=== PATIENT | male | born 1995 | race African-American/Black ===

== ENCOUNTER 2020-08-07 23:28 | Inpatient (IN) | payer MEDICAID ==
[~2020-08-07] VITALS: Ht 177.8 cm; Wt 116.0 kg
--- NOTE | 2020-08-07 19:37 | NUR ---
Received report from Saul GARIBAY at [facility]. Pt arrived on the unit via [facility] with his personal belongings, on R/A, VSS, SL and A/Ox4. No signs of distress, will continue to monitor.
[2020-08-07] MEDS ORDERED: ondansetron/PF 4mg/2ml inj IV PRN (23:35)
[2020-08-07] MEDS ORDERED: mag hydrox/Alum hydrox/simeth 30ml oral suspension PO PRN (23:35)
[2020-08-07] MEDS ORDERED: potassium CL 10mEq/100ml bag 100 ML IV PRN ×2 (23:35)
[2020-08-07] MEDS ORDERED: magnesium Cl slow-release 64mg tablet PO PRN (23:35)
[2020-08-07] MEDS ORDERED: magnesium 4gm in 100ml NS 100 ML IV PRN (23:35)
[2020-08-07] MEDS ORDERED: potassium Cl 20 mEq SR tablet PO PRN (23:35)
[2020-08-07] MEDS ORDERED: magnesium 2GM in 50ml NS 50 ML IV PRN (23:35)
[2020-08-07] MEDS ORDERED: acetaminophen 325mg tablet PO PRN ×2 (23:35)
[2020-08-07] MEDS ORDERED: magnesium hydroxide 30ml (MOM) UD suspension PO PRN (23:35)
[2020-08-07] MEDS ORDERED: HYDROcodone/acetaminophen 5mg/325mg tablet PO PRN (23:35)
[2020-08-07] MEDS ORDERED: HYDROcodone/acetaminophen 10/325mg tab PO PRN (23:35)
[2020-08-07] MEDS ORDERED: HYDROmorphone inj. 0.5 MG/0.5 ML DISP.SYRIN IV PRN (23:35)
[2020-08-07 23:41] VITALS: BP 149/78
[2020-08-08] MEDS: piperacillin/tazo 4.5gm/100ml 100 ML IV SCH ×3 (02:02→15:24)
[2020-08-08] MEDS ORDERED: vancomycin 1500mg/300ml PREMIX 250 ML IV SCH (03:00)
[2020-08-08] MEDS: clindamycin 600mg/D5W 50ml 50 ML IV SCH ×2 (03:24→07:35)
[2020-08-08] MEDS ORDERED: dextrose ORAL solution 15 GM/59 ML bottle PO PRN ×2 (05:45)
[2020-08-08] MEDS ORDERED: glucagon, human recombinant 1mg kit SUBCUT PRN (05:45)
[2020-08-08] MEDS ORDERED: MESSAGE TO PHARMACY PO ONE (05:45)
[2020-08-08] MEDS ORDERED: dextrose 50%-water 50ml dispensing syringe IV PRN ×2 (05:45)
[2020-08-08 05:58] LABS: BASOPHILS % (AUTO) 0.1 % (0-1); EOSINOPHILS % (AUTO) 0.2 % (0-6); HEMATOCRIT 28.6 % (42.0-52.0); HEMOGLOBIN 9.5 g/dl (14.0-17.9); LYMPHOCYTES # (AUTO) 1.7 X10'3 (1.1-4.8); LYMPHOCYTES % (AUTO) 9.2 % (21-51); MEAN CORPUSCULAR HEMOGLOBIN 28.8 PG (27.0-31.0); MEAN CORPUSCULAR HGB CONC 33.3 g/dL (33.0-36.5); MEAN CORPUSCULAR VOLUME 86.5 FL (78-98); MEAN PLATELET VOLUME 6.5 FL (7.4-10.4); MONOCYTES # (AUTO) 1.2 X10'3 (0-0.9); MONOCYTES % (AUTO) 6.4 % (2-12); NEUTROPHILS # (AUTO) 15.4 X10'3 (1.8-7.7); NEUTROPHILS % (AUTO) 84.1 % (42-75); PLATELET COUNT 246 X10'3 (140-440); RED CELL DISTRIBUTION WIDTH 15.1 % (11.5-14.5); WHITE BLOOD COUNT 18.3 X10'3 (4.5-11.0)
[2020-08-08 06:03] LABS: ALANINE AMINOTRANSFERASE 39 U/L (12-78); ALBUMIN 1.3 G/DL (3.4-5.0); ALBUMIN/GLOBULIN RATIO 0.3 (1.1-1.5); ALKALINE PHOSPHATASE 139 IU/L (46-116); ANION GAP 7 (8-16); ASPARTATE AMINO TRANSFERASE 49 U/L (10-37); BILIRUBIN,TOTAL 0.2 MG/DL (0.1-1.0); BLOOD UREA NITROGEN 18 MG/DL (7-18); BUN/CREATININE RATIO 14.4 (5.4-32.0); CHLORIDE 101 MMOL/L (99-107); CREATININE 1.25 MG/DL (0.60-1.10); GLUCOSE 246 MG/DL (70-104); MAGNESIUM 1.8 MG/DL (1.5-2.4); POTASSIUM 3.2 MMOL/L (3.5-5.1); SODIUM 133 MMOL/L (135-145); TOTAL CARBON DIOXIDE 24.8 MMOL/L (24-32); TOTAL PROTEIN 6.2 G/DL (6.4-8.2); VANCOMYCIN,RANDOM 9.6 UG/ML; eGFR 69 ML/MIN
--- NOTE | 2020-08-08 06:48 | NUR ---
Problems reprioritized. Patient report given, questions answered & plan of care reviewed with Radhika GARIBAY.
[2020-08-08 07:00] VITALS: BP 128/63
--- NOTE | 2020-08-08 07:14 | NUR ---
Patient in room [facility]. I have received report from gissell isaac and had the opportunity to ask questions and assume patient care.
[2020-08-08] MEDS: potassium Cl 20 mEq SR tablet PO PRN ×2 (07:39→13:53)
[2020-08-08] MEDS: docusate sod 100mg capsule PO SCH ×2 (08:00→19:44)
[2020-08-08] MEDS: K and/or MAG REPLACEMENT MC SCH ×2 (08:00→19:45)
[2020-08-08] MEDS: VANCOmycin 1250MG/NS 250ml Bag 250 ML IV SCH ×2 (09:01→19:39)
[2020-08-08 09:23] LABS: HEMOGLOBIN A1C 6.9 % (4.5-6.2)
[2020-08-08] MEDS: insulin Lispro (HumaLOG) vial - multi-dose SQ SCH ×3 (09:33→19:27)
[2020-08-08 10:13] LABS: TOTAL CELLS COUNTED 100
[2020-08-08 10:17] LABS: TOXIC GRANULATION 1+
[2020-08-08 10:18] LABS: PLATELET ESTIMATE NORMAL
[2020-08-08] MEDS ORDERED: morphine 2 MG/ML inj. syringe IV PRN (10:30)
[2020-08-08] MEDS ORDERED: HYDROcodone/acetaminophen 10/325mg tab PO PRN (10:30)
--- NOTE | 2020-08-08 15:04 | NUR ---
DM consult, A1c 6.9% new diagnosis per documentation, pt has already received DM survival skills from nursing. Attempted bedside visit, pt is requesting that RD return another time. Will return for in-depth education on new DM diagnosis. Addendum: 08/08/20 at [address] Amended: Links added.
[2020-08-08] MEDS ORDERED: iohexol 300mg/ml 100ml inj. ONE (15:36)
--- NOTE | 2020-08-08 17:22 | NUR ---
patient seen by wound team, orders given. Also seen by Dr Donato. CT scan ordered. DR gallardo called to speak with Dr Donato, message passed on. patients CT scan reviewed, is for transfer back to [facility]. Dr Donato and supervisor pile driving working on DC to [facility].
[2020-08-08] MEDS: HYDROcodone/acetaminophen 10/325mg tab PO PRN (17:37)
--- NOTE | 2020-08-08 18:40 | NUR ---
Problems reprioritized. Patient report given, questions answered & plan of care reviewed with [place] GARIBAY.
--- NOTE | 2020-08-08 18:42 | NUR ---
Patient in room [facility]. I have received report from Radhika GARIBAY and had the opportunity to ask questions and assume patient care.
[2020-08-08] MEDS ORDERED: normal saline 1000ml 1,000 ML IV SCH (19:10)
[2020-08-08] MEDS: HYDROmorphone 1 mg/ml syringe IV PRN ×2 (19:35→22:54)
[2020-08-08] MEDS: CLINDAMYCIN/D5W 900mg/50ml 50 ML IV SCH (19:40)
[2020-08-08 20:00] VITALS: BP 154/82
[2020-08-08] MEDS ORDERED: Dakins solution (1/4 strength) 473ml solution TP SCH (20:00)
[2020-08-08] MEDS ORDERED: insulin glargine (Lantus) pen - multi-dose SQ SCH (21:00)
[2020-08-09] MEDS: piperacillin/tazo 4.5gm/100ml 100 ML IV SCH (00:14)
[2020-08-09] MEDS: CLINDAMYCIN/D5W 900mg/50ml 50 ML IV SCH (00:14)
--- NOTE | 2020-08-09 00:27 | NUR ---
Report called to Pamela GARIBAY at [facility] [[email or web address]]. Pt was notified of his transfer, consent for treatment signed and witnessed. VSS at time of report. No signs of distress, Will continue to monitor until picked up by transport.
[2020-08-09 00:30] VITALS: BP 148/81
[2020-08-09] MEDS: HYDROcodone/acetaminophen 10/325mg tab PO PRN (01:07)
--- NOTE | 2020-08-09 01:15 | NUR ---
Pt was picked up by [facility] transport. All personal belongings were taken with pt at this time. Pt showed no signs of distress, was A/Ox4, on R/A with VSS.
[2020-08-09] MEDS ORDERED: VANCOMYCIN LEVEL IV ONE (18:30)
== END 2020-08-09 01:15 | disposition short-term general hospital (02) | DRG 351 ==
LOC: EDSEX 23:28 → SUR 3N 23:28
PROVIDERS: ADMIT Family Medicine; ATTEND Family Medicine
DX: M25.412 Effusion, left shoulder (principal); E11.65 Type 2 diabetes mellitus with hyperglycemia; D64.9 Anemia, unspecified; E87.6 Hypokalemia; Z79.899 Other long term (current) drug therapy; Z20.828 Contact with and (suspected) exposure to other viral communicable diseases
CPT/HCPCS: 36415; 73201; 80053; 80202; 82948; 83036; 83735; 85007; 85025; 85651; 87070; 87075; 87081; 87635; G0378; J1170; J1815; J2270; J2543; J3370; J3490; J7030; Q9967